=== PATIENT | female | born 1970 | race Caucasian/White ===

== ENCOUNTER 2021-09-29 04:57 | Outpatient (CLI) | payer OTHER | END 2021-09-29 04:58 | disposition critical access hospital (66) | LOC: EMS 04:57 | DX: I46.9 Cardiac arrest, cause unspecified (principal) | CPT/HCPCS: A0425; A0427 ==

== ENCOUNTER 2021-09-29 05:05 | Emergency (ER) | payer OTHER ==
[2021-09-29] MEDS ORDERED: ASPIRIN 300 MG SUPP PR STA (05:33)
--- NOTE | 2021-09-29 05:36 | ED Physician Documentation ---
PD HPI CHEST PAIN - Stated complaint Stated Complaint: CPR - Chief complaint Chief Complaint: Critical Care - History obtained from History obtained from: EMS - Additional information Additional information: . Reportedly had a witnessed cardiac arrest by significant other around 4 AM and CPR was started immediately. On arrival of the EMS, presenting rhythm was asystole after 3 rounds of CPR and epinephrine ROSC was obtained straight to sinus rhythm. Carpentry Specialist was unclear if there was any antecedent illness or cardiac history but basically just stated that patient was known to be previously healthy. The patient is obtunded and no history is available from her. Review of Systems Unable to obtain: Unresponsive, Intubated PD PAST MEDICAL HISTORY - Allergies Allergies/Adverse Reactions: Allergies Allergy/AdvReac Type Severity Reaction Status Date / Time Unable to Assess Allergy Verified 09/29/21 05:39 Results - Vitals Vitals: Vital Signs - 24 hr 09/29/21 09/29/21 05:11 05:25 Heart Rate 0 L 80 Respiratory 22 Rate Blood Pressure 0/0 L O2 Saturation 98 Oxygen O2 Source Mechanical ventilator - EKG (time done) 0514 Rate: Rate (enter#) (63) Rhythm: NSR [place]: Normal Intervals: Normal NM Ischemia: Other (Deep T wave inversion with ST depression laterally concerning for ischemia) Compare to prior EKG: Old EKG unavailable - Labs Labs: Laboratory Tests 09/29/21 09/29/21 09/29/21 05:35 05:35 05:35 WBC 4.5 L RBC 3.33 L Hgb 9.4 L Hct 34.4 L MCV 103.3 H MCH 28.2 MCHC 27.3 L RDW 14.4 Plt Count 181 MPV 11.3 H Neut # (Auto) 2.8 Lymph # (Auto) 1.4 L Stanley # (Auto) 0.1 Eos # (Auto) 0.1 Baso # (Auto) 0.0 Absolute Nucleated RBC 0.00 Nucleated RBC % 0.0 Manual Slide Review Indicated WBC Morphology NORMAL APPEARANCE Platelet Estimate NORMAL (130-450,000) Platelet Morphology NORMAL APPEARANCE RBC Morph Micro Appear 1+ HYPOCHROMASIA PT 13.9 H INR 1.3 H Sodium 135 Potassium 4.0 Chloride 98 L Carbon Dioxide 14 L Anion Gap 23.0 H BUN 14 Creatinine 1.6 H Estimated GFR (MDRD) 34 L Glucose 503 H* Lactic Acid Calcium 7.8 L Phosphorus 10.5 H Magnesium 2.8 Total Bilirubin 0.7 AST 76 H ALT < 10 L Alkaline Phosphatase 82 Troponin I High Sens B-Natriuretic Peptide Total Protein 5.2 L Albumin 2.8 L Globulin 2.4 Albumin/Globulin Ratio 1.2 TSH Ethyl Alcohol < 5.0 09/29/21 09/29/21 09/29/21 05:35 05:35 05:35 WBC RBC Hgb Hct MCV MCH MCHC RDW Plt Count MPV Neut # (Auto) Lymph # (Auto) Stanley # (Auto) Eos # (Auto) Baso # (Auto) Absolute Nucleated RBC Nucleated RBC % Manual Slide Review WBC Morphology Platelet Estimate Platelet Morphology RBC Morph Micro Appear PT INR Sodium Potassium Chloride Carbon Dioxide Anion Gap BUN Creatinine Estimated GFR (MDRD) Glucose Lactic Acid > 10.0 H* Calcium Phosphorus Magnesium Total Bilirubin AST ALT Alkaline Phosphatase Troponin I High Sens 110.4 H* B-Natriuretic Peptide 175 H Total Protein Albumin Globulin Albumin/Globulin Ratio TSH Ethyl Alcohol 09/29/21 05:35 WBC RBC Hgb Hct MCV MCH MCHC RDW Plt Count MPV Neut # (Auto) Lymph # (Auto) Stanley # (Auto) Eos # (Auto) Baso # (Auto) Absolute Nucleated RBC Nucleated RBC % Manual Slide Review WBC Morphology Platelet Estimate Platelet Morphology RBC Morph Micro Appear PT INR Sodium Potassium Chloride Carbon Dioxide Anion Gap BUN Creatinine Estimated GFR (MDRD) Glucose Lactic Acid Calcium Phosphorus Magnesium Total Bilirubin AST ALT Alkaline Phosphatase Troponin I High Sens B-Natriuretic Peptide Total Protein Albumin Globulin Albumin/Globulin Ratio TSH 9.49 H Ethyl Alcohol Procedures - Central Line Central Line Preparation: Unable to obtain consent, Time out completed, Ultrasound used, Sterile prep and drape Central line location: Right IJ Central line type: Triple lumen Central line aftercare: Chlorhexidine disc placed, Secured, Placement confirmed, No pneumothorax, No complications, Bundle checklist complete, Pt tolerated well PD MEDICAL DECISION MAKING - ED course ED course: Patient presented in normal sinus rhythm but obtunded and intubated. Bedside cardiac ultrasound demonstrates diminished squeeze, visually EF I am guessing is 30%. Her pressure started dropping rapidly and a right IJ central line was expeditiously placed. She did require a single dose of 50 mcg of push dose epinephrine and then a Levophed drip was started. Her EKG looks quite ischemic and she was accepted to [facility] by Brianna Hernandez at approximately 5:30 AM. [employer] was unable to fly due to weather and a stat ground rig was arranged. I was able to speak with shelley by phone, she had had what they thought was musculoskeletal neck pain for few days which caused her to have a couple of nights of poor sleep. Also there must of been some sort of antecedent illness because when he found her in the bathroom she had had a thermometer out. - Critical Care Time(min): 40 Time Includes: Direct patient care, Review records, Reassess patient, Document care, Coordinate care, Medical consult Data interpretation: Labs, Pulse ox Procedures included in critical care time: Peripheral IV Procedures excluded from critical care time: Central IV Departure - Departure Disposition: 02 Transfer Acute Care Hosp Clinical Impression: Cardiac arrest Condition: Critical
[2021-09-29 05:39] LABS: BASOPHILS % (AUTO) 0.4 %; EOSINOPHILS # (AUTO) 0.1 10^3/uL (0.0-0.7); EOSINOPHILS % (AUTO) 2.4 %; HCT - HEMATOCRIT 34.4 % (37.0-47.0); HGB - HEMOGLOBIN 9.4 g/dL (12.0-16.0); LYMPHOCYTES # (AUTO) 1.4 10^3/uL (1.5-3.5); LYMPHOCYTES % (AUTO) 31.1 %; MEAN CORPUSCULAR HEMOGLOBIN 28.2 pg (27.0-31.0); MEAN CORPUSCULAR HGB CONC 27.3 g/dL (32.0-36.0); MEAN CORPUSCULAR VOLUME 103.3 fL (81.0-99.0); MEAN PLATELET VOLUME 11.3 fL (7.9-10.8); MONOCYTES # (AUTO) 0.1 10^3/uL (0.0-1.0); MONOCYTES % (AUTO) 3.1 %; NEUTROPHILS # (AUTO) 2.8 10^3/uL (1.5-6.6); NEUTROPHILS % (AUTO) 61.2 %; PLT - PLATELET COUNT 181 10^3/uL (130-450); RED BLOOD COUNT 3.33 10^6/uL (4.20-5.40); RED CELL DISTRIBUTION WIDTH 14.4 % (12.0-15.0); WHITE BLOOD COUNT 4.5 x10^3/uL (4.8-10.8)
[2021-09-29 05:42] LABS: SLIDE REVIEW? Indicated
[2021-09-29] MEDS ORDERED: EPINEPHrine ABBOJECT 1 MG/10 ML SYRINGE IVP STA (05:43)
[2021-09-29 05:50] LABS: INR 1.3 (0.8-1.2); PT - PROTHROMBIN TIME 13.9 secs (9.9-12.6)
[2021-09-29 05:56] LABS: ALBUMIN 2.8 g/dL (3.2-5.5); ALBUMIN/GLOBULIN RATIO 1.2 (1.0-2.2); ALKALINE PHOSPHATASE 82 IU/L (42-121); ALT ALANINE AMINOTRANSFERASE < 10 IU/L (10-60); AST ASPARTATE AMINOTRANSFERASE 76 IU/L (10-42); BILIRUBIN,TOTAL 0.7 mg/dL (0.2-1.0); BUN - BLOOD UREA NITROGEN 14 mg/dL (6-20); CALCIUM 7.8 mg/dL (8.5-10.3); CARBON DIOXIDE - CO2 14 mmol/L (21-32); CHLORIDE 98 mmol/L (101-111); CREATININE 1.6 mg/dL (0.4-1.0); ETOH - ETHANOL < 5.0 mg/dL; GFR - MDRD 34 (>89); MAGNESIUM 2.8 mg/dL (1.7-2.8); PHOSPHORUS 10.5 mg/dL (2.5-4.6); PLATELET ESTIMATE, MANUAL NORMAL (130-450,000) (NORMAL); PLATELET MORPHOLOGY NORMAL APPEARANCE (NORMAL); RBC MORPHOLOGY (MULTIPLE) 1+ HYPOCHROMASIA (NORMAL); SODIUM 135 mmol/L (135-145); TOTAL PROTEIN 5.2 g/dL (6.7-8.2); WBC MORPHOLOGY (MULTIPLE) NORMAL APPEARANCE (NORMAL)
[2021-09-29 05:57] LABS: GLUCOSE 503 mg/dL (70-100)
[2021-09-29] MEDS ORDERED: HEPARIN 25000UNITS/500ML (D5W) 25,000 UNIT/500 ML BAG IV SCH (06:00)
[2021-09-29 06:04] VITALS: BP 0/0
[2021-09-29 06:57] LABS: B. PARAPERTUSSIS- RESP PCR PAN NOT DETECTED; B. PERTUSSIS- RESP PCR PANEL NOT DETECTED; C. PNEUMONIAE- RESP PCR PANEL NOT DETECTED; CORONAVIRUS 229E-RESP PCR NOT DETECTED; CORONAVIRUS HKU1-RESP PCR NOT DETECTED; CORONAVIRUS NL63-RESP PCR NOT DETECTED; CORONAVIRUS OC43-RESP PCR NOT DETECTED; HUMAN METAPNEUMOVIRUS NOT DETECTED; INFLUENZA A- RESP PCR PANEL NOT DETECTED; INFLUENZA B - RESP PCR PANEL NOT DETECTED; M. PNEUMONIAE- RESP PCR PANEL NOT DETECTED; PARAINFLUENZA VIRUS 1 NOT DETECTED; PARAINFLUENZA VIRUS 2 NOT DETECTED; PARAINFLUENZA VIRUS 3 NOT DETECTED; PARAINFLUENZA VIRUS 4 NOT DETECTED; RHINOVIRUS/ENTEROVIRUS NOT DETECTED; RSV- RESP PCR PANEL NOT DETECTED; SARS-CoV-2 -RESP PCR PANEL NOT DETECTED
--- NOTE | 2021-09-29 07:05 | XRAY Report ---
PROCEDURE: Chest 1 View X-Ray INDICATIONS: post arrest, intubated TECHNIQUE: One view of the chest was acquired. COMPARISON: None FINDINGS: Surgical changes and devices: Endotracheal tube tip projects approximately 6.1 cm above the coral. R ight jugular central venous catheter is present with the distal tip projecting over the lower SVC. Na sogastric tube extends below the level of the diaphragm with the distal tip excluded off the field-of -view. Lungs and pleura: No pleural effusions or pneumothorax. Diffuse interstitial prominence. Streaky bib asilar opacities likely atelectasis. No focal consolidation. Mediastinum: Mediastinal contours appear normal. Heart size is normal. Bones and chest wall: No suspicious bony lesions. Overlying soft tissues appear unremarkable. IMPRESSION: Support equipment as described above. Diffuse interstitial prominence and streaky bibasilar opacities. No focal consolidations. No significant discrepancy with initial interpretation by overnight radiologist. Reviewed by: Santiago Lozano MD on 09/29/2021 7:04 AM PST Approved by: Santiago Lozano MD on 09/29/2021 7:04 AM PST Station ID: [id number]
== END 2021-09-29 05:54 | disposition short-term general hospital (02) ==
LOC: EDUNIT# → ED 05:05
DX: I46.9 Cardiac arrest, cause unspecified (principal); Z20.822 Contact with and (suspected) exposure to COVID-19
CPT/HCPCS: 0202U; 36415; 36556; 71045; 80053; 80320; 83605; 83735; 83880; 84100; 84443; 84484; 85025; 85610; 93005; 94002; 96374; 99291; A9270; 82803; 94770

== ENCOUNTER 2021-09-29 06:00 | Outpatient (CLI) | payer OTHER | END 2021-09-29 06:01 | disposition short-term general hospital (02) | LOC: EMS 06:00 | PROVIDERS: ATTEND Emergency Medicine | DX: I46.9 Cardiac arrest, cause unspecified (principal); I21.3 ST elevation (STEMI) myocardial infarction of unspecified site | CPT/HCPCS: A0425; A0428 ==